=== PATIENT | female | born 1995 | race Caucasian/White ===

== ENCOUNTER 2017-02-20 00:42 | Emergency (ER) | payer OTHER ==
[~2017-02-20] VITALS: Ht 165.1 cm; Wt 97.5 kg
[2017-02-20 01:25] LABS: ABSOLUTE BASOPHIL COUNT 0 /CUMM (0.0-0.2); ABSOLUTE EOSINOPHIL COUNT 0.5 /CUMM (0.0-0.7); ABSOLUTE GRANULOCYTE CT 7.3 /CUMM (1.4-6.5); ABSOLUTE LYMPH COUNT 2.7 /CUMM (1.2-3.4); BASOPHIL % 0.4 % (0.0-2.0); EOSINOPHIL % 4.7 % (0-5); HEMATOCRIT 40.6 % (37-47); MEAN CORPUSCULAR HGB 25.8 PG (27.0-31.0); MEAN CORPUSCULAR HGB CONC 32.3 G/DL (33.0-37.0); MEAN CORPUSCULAR VOLUME 79.9 FL (81.0-99.0); PLATELET COUNT 377 /CUMM (130-400); RBC DISTRIBUTION WIDTH 15.9 % (11.5-14.5); RED BLOOD CELL CT 5.08 /CUMM (4.20-5.40); WHITE BLOOD CELL COUNT 11.6 /CUMM (4.8-10.8)
--- NOTE | 2017-02-20 01:31 | ED GI/GU/ABDOMINAL COMPLAINT ---
History of Present Illness General Chief Complaint: Abdominal Pain/Flank Pain Stated Complaint: ABD PAIN Source: patient Exam Limitations: no limitations Vital Signs & Intake/Output Vital Signs & Intake/Output Vital Signs Date Time Temp Pulse Resp B/P B/P Pulse O2 O2 Flow FiO2 Mean Ox Delivery Rate 02/20 0052 98.6 86 18 119/85 97 Room Air Allergies Coded Allergies: No Known Drug Allergies (NKDA 02/20/17) Reconcile Medications Omeprazole Magnesium (Prilosec Otc) 20 MG TABLET.DR 1 TAB PO DAILY stomach pain Ondansetron (Zofran Odt) 4 MG TAB.RAPDIS 1 TAB SL TID PRN nausea vomiting Triage Note: PT TO ED C/O BURNING, SHARP EPIGASTRIC PAIN SINCE TAKING OXYCODONE . HAD ALL 4 WISDOM TEETH EXTRACTED ON MONDAY. LAST BM WAS ON MONDAY. +N/B FOR OVER 24 HRS. PT IS UNSURE ABOUT AND DOES NOT WANT TOPIC DISCUSSED IN FRONT OF PERSON WITH HER IN THE ED TONIGHT Triage Nurses Notes Reviewed? yes ? n Is pt currently ? No Onset: Gradual Duration: day(s):, waxing and waning Timing: recent history Quality/Severity: cramping, mild, moderate Location: epigastric Radiation: no radiation Modifying Factors: Worsens With: palpation. Associated Symptoms: abdominal pain, nausea/vomiting HPI: 21 yo woman, in prior good health presents with with abdominal pain in the mid epigastrum, and vomiting x 24 hours, without fever, chills, dysuria, vaginal discharge, diarrhea. She states, "everything I eat, comes right back up." Past History Travel History Traveled to [place] past 21 day No Medical History Any Pertinent Medical History? see below for history Respiratory: asthma Surgical History Surgical History: none Psychosocial History What is your primary language Swedish Tobacco Use: Current Daily Use Daily Tobacco Use Amount/Type: => 5 Cigarettes daily ETOH Use: denies use Illicit Drug Use: denies illicit drug use Family History Hx Contributory? No Review of Systems Review of Systems Constitutional: Reports: no symptoms. EENTM: Reports: no symptoms. Respiratory: Reports: no symptoms. Cardiovascular: Reports: no symptoms. GI: Reports: no symptoms. Genitourinary: Reports: no symptoms. Musculoskeletal: Reports: no symptoms. Skin: Reports: no symptoms. Neurological/Psychological: Reports: no symptoms. Hematologic/Endocrine: Reports: no symptoms. Immunologic/Allergic: Reports: no symptoms. All Other Systems: Reviewed and Negative Physical Exam Physical Exam General Appearance: well developed/nourished, mild distress Head: atraumatic, normal appearance Eyes: Bilateral: normal appearance. Ears, Nose, Throat, Mouth: hearing grossly normal Neck: normal inspection, supple, full range of motion Respiratory: normal breath sounds, chest non-tender, no respiratory distress, quiet respiration, lungs clear Cardiovascular: regular rate/rhythm Gastrointestinal: normal bowel sounds, mild mid epigastric tenderness. no marcano 's. no guarding, no rlq tenderness Back: normal inspection Extremities: normal range of motion Neurologic/Psych: no motor/sensory deficits, awake, alert, oriented x 3 Skin: intact, normal color, warm/dry Core Measures ACS in differential dx? No Severe Sepsis Present: No Septic Shock Present: No Progress Differential Diagnosis: gerd, viral syndrome, gastroenteritis vs other. Plan of Care: Orders Procedure Date/time Status LIPASE 02/20 47 Complete HEPATIC FUNCTION PANEL 02/20 47 Complete HUMAN BETA HCG SCREEN 02/20 47 Complete CBC WITHOUT DIFFERENTIAL 02/20 47 Complete BASIC METABOLIC PANEL 02/20 47 Complete AMYLASE 02/20 47 Complete Current Medications Sig/Sandra Start time Last Medication Dose Stop Time Status Admin Acetaminophen 1,000 MG ONCE ONE 02/20 0200 UNVr 02/20 (Ofirmev) 02/20 0214 0226 N/A 1 UNIT (No Carrier) Famotidine 20 MG ONCE ONE 02/20 145 UNVr 02/20 (Pepcid) 02/20 014 0226 Ondansetron HCl 4 MG ONCE ONE 02/20 145 UNVr 02/20 (Zofran) 02/20 014 0226 Sodium Chloride 1,000 ML BOLUS ONE 02/20 145 UNVr 02/20 (Normal Saline 0.9%) 02/20 0244 0226 Laboratory Tests 02/20/17 0112: Anion Gap 14, Estimated GFR > 60, BUN/Creatinine Ratio 8.8, Glucose 98, Calcium 9.7, Total Bilirubin 0.5, Direct Bilirubin 0.2, AST 17, ALT 31, Alkaline Phosphatase 76, Total Protein 7.8, Albumin 4.2, Amylase 43, Lipase 46, Total Beta HCG NEGATIVE 02/20/17 0110: CBC w Diff NO MAN DIFF REQ, RBC 5.08, MCV 79.9 L, MCH 25.8 L, RDW 15.9 H, MPV 8.0, Gran % 63.0, Lymphocytes % 23.4, Monocytes % 8.5, Eosinophils % 4.7, Basophils % 0.4, Absolute Granulocytes 7.3 H, Absolute Lymphocytes 2.7, Absolute Monocytes 1.0 H, Absolute Eosinophils 0.5, Absolute Basophils 0, PUBS MCHC 32.3 L Initial ED EKG: none Departure Departure Disposition: HOME OR SELF CARE Condition: Stable Clinical Impression Primary Impression: Abdominal pain Secondary Impressions: Vomiting Referrals: UNKNOWN (PCP/Family) Departure Forms: Customer Survey General Discharge Information Prescriptions: Current Visit Scripts Ondansetron (Zofran Odt) 1 TAB SL TID PRN nausea vomiting #10 TAB Omeprazole Magnesium (Prilosec Otc) 1 TAB PO DAILY #30 TAB Comments 02/20/17, 2:36am... pt resting comfortably, upon repeat exam, abdomen is non tender, no marcano's sign, no rlq tenderness. labs benign... pt safe for discharge with close follow up encouraged. pt tolerated oral fluids in the ED without problem.
[2017-02-20] MEDS ORDERED: ZOFRAN ODT4 M1 SL (02:30)
[2017-02-20] MEDS ORDERED: PRILOSEC OTC20 M1 PO (02:30)
[2017-02-20 03:27] VITALS: BP 144/60
== END 2017-02-20 03:31 ==
LOC: ERH 00:42
PROVIDERS: Pediatrics
DX: R10.13 Epigastric pain (principal); R11.10 Vomiting, unspecified
CPT/HCPCS: 96361; 96374; 96375; J0131; J2405